=== PATIENT | male | born 1985 | race Caucasian/White ===

== ENCOUNTER 2016-10-25 23:02 | Emergency (ER) | payer MEDICAID ==
[2016-10-25 23:30] VITALS: BP 147/91
[2016-10-25] MEDS ORDERED: Acetaminophen/oxyCODONE 325-5 MG Tab PO ONE (23:48)
[2016-10-25] MEDS ORDERED: Ketorolac 60 MG/2 ML SDV IM ONE (23:48)
--- NOTE | 2016-10-25 23:56 | EDM.PDOC ---
ED HPI GENERAL MEDICAL PROBLEM - General Chief Complaint: General Stated Complaint: LEFT SIDE FACE PAIN Time Seen by Provider: 10/25/16 23:51 Source of Information: Reports: Patient History Limitations: Reports: No limitations - History of Present Illness INITIAL COMMENTS - FREE TEXT/NARRATIVE: pt has severe dental pain on the left upper. He has been encouraged to go to [place] for extraction Onset: gradual Duration: Day(s): Location: Reports: face Associated Symptoms: Reports: other ( dental pain. ) Left Side Face Pain Score (Numeric/FACES): 10 - Related Data Allergies Allergy/AdvReac Type Severity Reaction Status Date / Time No Known Allergies Allergy Verified 10/25/16 23:30 Home Meds: Home Meds Albuterol [Ventolin HFA] 2 puff IH ASDIRECTED PRN 10/25/16 [History] Past Medical History Musculoskeletal History: Reports: Fracture, Other (see below) Other Musculoskeletal History: Wrist - Infectious Disease History Infectious Disease History: Reports: Chicken pox Social & Family History - Tobacco Use Smoking Status *Q: Current Some Day Smoker Years of Tobacco use: 4 Packs/Tins Daily: 0.5 - Caffeine Use Caffeine Use: Reports: Soda - Recreational Drug Use Recreational Drug Use: Yes ED ROS GENERAL - Review of Systems Review Of Systems: See Below Constitutional: Reports: no symptoms HEENT: Reports: Dental pain Respiratory: Reports: No Symptoms Cardiovascular: Reports: No symptoms Endocrine: Reports: no symptoms GI/Abdominal: Reports: No symptoms : Reports: no symptoms Musculoskeletal: Reports: no symptoms Skin: Reports: no symptoms Neurological: Reports: Headache ED EXAM, GENERAL - Physical Exam Exam: See Below Free Text/Narrative:: Pt arrived with acute pain in the left upper post gum line. Exam Limited By: No limitations General Appearance: alert, anxious Ears: normal TMs Nose: normal inspection Throat/Mouth: Other ( 2 very carrious teeth) Head: atraumatic Neck: lymphadenopathy (L) Respiratory/Chest: no respiratory distress Course - Vital Signs Last Recorded V/S: Last Vital Signs Temp 37.0 C 10/25/16 23:27 Pulse 87 10/25/16 23:27 Resp 6 L 10/25/16 23:27 BP 147/91 H 10/25/16 23:27 Pulse Ox 97 10/25/16 23:27 - Orders/Labs/Meds Meds: Medications Discontinued Medications Generic Name Dose Route Start Last Admin Trade Name Freq PRN Reason Stop Dose Admin Ketorolac Tromethamine 60 mg 10/25/16 23:48 Toradol IM 10/25/16 23:49 ONETIME ONE Oxycodone/Acetaminophen 1 tab 10/25/16 23:48 Percocet 325-5 Mg PO 10/25/16 23:49 ONETIME ONE - Re-Assessments/Exams Free Text/Narrative Re-Assessment/Exam: 10/25/16 23:55 pt was given a torodol injection and percocet tab. Departure - Departure Time of Disposition: 23:55 Disposition: Home, Self-Care 01 Condition: fair Clinical Impression: Infected tooth Forms: ED Department Discharge Care Plan Goals: amoxicillin 500mg tid, tramodol 50mg q6h as needed for pain.
== END 2016-10-26 00:25 | disposition home or self-care (01) ==
LOC: JP.ED 23:02
DX: K04.7 Periapical abscess without sinus (principal); F17.210 Nicotine dependence, cigarettes, uncomplicated
CPT/HCPCS: 96372; 99283; A9270; J1885